=== PATIENT | male | born 1990 | race Caucasian/White ===

== ENCOUNTER 2025-02-23 00:30 | Emergency (ER) | payer MEDICAID ==
[~2025-02-23] VITALS: Ht 175.3 cm; Wt 66.3 kg
[2025-02-23 00:52] VITALS: BP 133/83; PULSE 88; RESP 18; TEMP 36.9; O2SAT 99
[2025-02-23] MEDS ORDERED: BENZ100C86 MT (03:10)
[2025-02-23] MEDS: ACETAMINOPHEN 500MG TABLET PO ONE (03:29)
== END 2025-02-23 03:38 | disposition home or self-care (01) ==
LOC: ER 00:30
DX: J02.9 Acute pharyngitis, unspecified (principal); B97.89 Other viral agents as the cause of diseases classified elsewhere
CPT/HCPCS: 71045; 99283; Z7610; A4606

== ENCOUNTER 2025-03-10 14:40 | Emergency (ER) | payer MEDICAID ==
[~2025-03-10] VITALS: Ht 172.7 cm; Wt 70.0 kg
[~2025-03-10 14:40] MED LIST: BENZ100C86 MT
[2025-03-10 15:06] VITALS: O2SAT 99
[2025-03-10] MEDS ORDERED: CYCL10TA21 MT (16:45)
[2025-03-10] MEDS: KETOROLAC 15MG/ML VIAL IM ONE (17:35)
[2025-03-10] MEDS: CYCLOBENZAPRINE 10MG TABLET PO ONE (17:35)
[2025-03-10 17:40] VITALS: BP 120/63; PULSE 66; RESP 14; TEMP 36.6; O2SAT 100
== END 2025-03-10 17:41 | disposition home or self-care (01) ==
LOC: ER 14:40
DX: M62.838 Other muscle spasm (principal)
CPT/HCPCS: 99283; 96372; J1885

== ENCOUNTER 2025-04-28 13:51 | Emergency (ER) | payer MEDICAID ==
[~2025-04-28] VITALS: Ht 165.1 cm; Wt 59.0 kg
[~2025-04-28 13:51] MED LIST changes: +CYCL10TA21 MT
[2025-04-28 14:01] VITALS: O2SAT 99
[2025-04-28] MEDS: LIDOCAINE 5% PATCH TOP SCH (16:11)
[2025-04-28] MEDS: KETOROLAC 15MG/ML VIAL IM ONE (16:12)
[2025-04-28] MEDS ORDERED: IBUP-2028 MT (16:47)
[2025-04-28] MEDS ORDERED: LIDO-53 TP (16:47)
[2025-04-28 17:06] VITALS: BP 120/72; PULSE 64; RESP 16; TEMP 36.2; O2SAT 100
== END 2025-04-28 17:08 | disposition home or self-care (01) ==
LOC: ER 13:51
DX: M25.512 Pain in left shoulder (principal); Z79.899 Other long term (current) drug therapy
CPT/HCPCS: 99283; 73030; 96372; J1885

== ENCOUNTER 2025-06-11 16:47 | Emergency (ER) | payer MEDICAID ==
[~2025-06-11] VITALS: Ht 172.7 cm; Wt 67.0 kg
[~2025-06-11 16:47] MED LIST changes: +IBUP-2028 MT; +LIDO-53 TP
[2025-06-11 16:55] VITALS: O2SAT 100
[2025-06-11] MEDS: DEXAMETHASONE 4MG TABLET PO ONE (17:15)
[2025-06-11] MEDS: IBUPROFEN 400MG TABLET PO ONE (17:27)
[2025-06-11] MEDS ORDERED: IBUP-2437 MT (18:40)
[2025-06-11] MEDS ORDERED: TOPUD MT (18:40)
[2025-06-11] MEDS ORDERED: PHEN20SP MT (18:40)
[2025-06-11] MEDS: KETOROLAC 15MG/ML VIAL IM ONE (19:34)
[2025-06-11 19:37] VITALS: BP 113/71; PULSE 73; RESP 18; TEMP 37; O2SAT 100
== END 2025-06-11 19:39 | disposition home or self-care (01) ==
LOC: ER 16:47
DX: J02.9 Acute pharyngitis, unspecified (principal); Z79.899 Other long term (current) drug therapy
CPT/HCPCS: 87430; 87070; 96372; 99283; J8540; J1885; Z7610